=== PATIENT | male | born 1980 | race African-American/Black ===

== ENCOUNTER 2023-05-26 18:31 | Emergency (ER) | payer OTHER ==
[~2023-05-26] VITALS: Ht 180.3 cm; Wt 84.1 kg
[~2023-05-26 18:31] MED LIST: NOCURR
[2023-05-26 18:33] VITALS: TEMP 98
[2023-05-26] MEDS: SODIUM CHLORIDE 0.9% 500 ML IV ONE (19:35)
[2023-05-26 19:43] LABS: BASOPHILS % (AUTO) 0.8 % (0.0-2.0); EOSINOPHILS % (AUTO) 2.4 % (1.0-6.0); HEMATOCRIT 42.7 % (41-53); HEMOGLOBIN 13.9 g/dL (13.5-17.5); LYMPHOCYTES # (AUTO) 3.4 K/uL (1.0-4.8); LYMPHOCYTES % (AUTO) 36.3 % (22.0-44.0); MEAN CORPUSCULAR HEMOGLOBIN 28.5 pg (26.0-34.0); MEAN CORPUSCULAR HGB CONC 32.6 G/dL (31.0-37.0); MEAN CORPUSCULAR VOLUME 88 fL (80-100); MONOCYTES # (AUTO) 0.4 K/uL (0.1-1.0); MONOCYTES % (AUTO) 4.5 % (2.0-9.0); NEUTROPHILS # (AUTO) 5.2 K/uL (1.8-7.7); PLATELET COUNT (AUTO) 394 K/uL (150-450); RED BLOOD CELL COUNT(AUTO) 4.89 MIL/uL (4.50-5.90); RED CELL DISTRIBUTION WIDTH 13.7 % (11.5-14.5); WHITE BLOOD COUNT (AUTO) 9.3 K/uL (4.5-11.0)
[2023-05-26 20:24] LABS: ANION GAP 8 mmol/L (8-16); CALCIUM, TOTAL 9.6 mg/dL (8.8-10.5); CARBON DIOXIDE 28 mmol/L (22-29); CHLORIDE 98 mmol/L (98-107); CREATININE 1.11 mg/dL (0.60-1.30); GLOMERULAR FILTR. RATE CALC > 60 mL/min (>60); GLUCOSE,RANDOM 99 mg/dL (70-110); POTASSIUM 4.1 mmol/L (3.5-5.1); SODIUM SERUM 134 mmol/L (136-145); UREA NITROGEN, BLOOD 13 mg/dL (7-18)
[2023-05-26 20:29] LABS: ALANINE AMINOTRANSFERASE 43 U/L (12-78); ALBUMIN 4.3 g/dL (3.4-5.0); ALKALINE PHOSPHATASE 101 U/L (46-116); ASPARTATE AMINOTRANSFERASE 20 U/L (15-37); BILIRUBIN,TOTAL 0.2 mg/dL (0.1-1.0); TOTAL PROTEIN, SERUM 8.6 g/dL (6.4-8.2)
[2023-05-26 21:01] LABS: TROPONIN I-HIGH SENSITIVITY 5 ng/L (<76)
[2023-05-26] MEDS ORDERED: METH-659 PO (21:08)
[2023-05-26] MEDS ORDERED: IBUP-1492 PO (21:08)
[2023-05-26 21:15] VITALS: BP 158/96; PULSE 77; RESP 18
== END 2023-05-26 22:50 | disposition home or self-care (01) ==
LOC: EMS 18:33
DX: M54.6 Pain in thoracic spine (principal)
CPT/HCPCS: 99285; 96360; 71045; 80053; 84484; 85025; 36415; 93005; J7040